=== PATIENT | female | born 1990 | race Caucasian/White ===

== ENCOUNTER 2018-10-28 20:05 | Inpatient (IN) ==
[~2018-10-28 20:05] MED LIST: PENICILLIN G POTASSIUM 2.5 MILLIONUNT in DEXTROSE 5 % IN WATER 100 ML IV SCH
[2018-10-28 20:53] LABS: Cocaine Ur Negative (NEGATIVE); Urine Barbiturate Negative (NEGATIVE); Urine Benzodiazepines Negative (NEGATIVE); Urine Opiates Negative (NEGATIVE); Urine PCP Negative (NEGATIVE); Urine THC Negative (NEGATIVE)
[2018-10-28] MEDS ORDERED: RINGER'S SOLUTION,LACTATED 1,000 ML IV ONE (21:55)
[2018-10-28] MEDS ORDERED: PENICILLIN G POTASSIUM 5 MILLIONUNT in DEXTROSE 5 % IN WATER 100 ML IV ONE ×2 (22:35)
[2018-10-28] MEDS ORDERED: OXYTOCIN/DEXTROSE 5%-WATER 30 UNITS/500 ML BAG IV ONE (22:50)
[2018-10-28] MEDS ORDERED: DEXTROSE 5%-LACTATED RINGERS 1,000 ML IV PRN (22:54)
[2018-10-28] MEDS ORDERED: LIDOCAINE HCL 50 ML VIAL PERI PRN (22:54)
[2018-10-28] MEDS ORDERED: RINGER'S SOLUTION,LACTATED 1,000 ML IV PRN ×2 (22:54)
--- NOTE | 2018-10-29 00:18 | HP ---
Chief Complaint - Chief Complaint Date of Service: 10/29/18 Time of Service: 00:16 Chief Complaint: Labor History of Present Illness: The patient presents with regular ctx. She denies vb or lof. Fetus is active. Medical History (Updated 09/07/18 @ 08:20 by Liang Nick DO) 6, currently Spontaneous Anxiety and depression Anemia affecting Surgical History: Surgical History (Updated 09/07/18 @ 08:20 by Liang Nick DO) Hx of tympanostomy tubes History of wisdom tooth extraction Family History: Family History (Updated 04/22/18 @ 09:39 by Evelyn Antonio CMA) Grandfather Diabetes Grandmother Diabetes Kidney failure Daughter , 5 months old RSV (respiratory syncytial virus infection) 5 months Mother Hypertension Father Alive and well Social History: Preferred Language Cymro Smoking Status Current every day smoker (Last Updated 10/23/18 @ 09:49 by Megha Chamberlain MD) No Social History Section defined Review Of Systems (GEN) - Review of Systems Generalized/Overall Review: Present: No Symptoms Reported Misc: All systems neg except as marked Immunizations: IMMUNIZATION HX Immunizations Up to Date Yes History of Influenza Vaccine Yes Hx Pneumococcal Vaccination No Allergies/Adverse Reactions: Allergies Allergy/AdvReac Type Severity Reaction Status Date / Time No Known Allergies Allergy Verified 10/28/18 20:25 Home Medications: HOME MEDICATIONS Vits96/Iron Fum/Folic [ S] 1 tab PO DAILY 12/20/12 [Last Taken 10/28/18 09:00] Ferrous Sulfate [Iron] 325 mg PO DAILY 09/07/18 [Last Taken 10/28/18 09:00] Exam - Exam Vital Signs: Vital Signs - Last Taken Temp 36.5 C 10/28/18 20:42 Pulse 90 10/28/18 20:42 Resp 16 10/28/18 20:42 BP 128/91 H 10/28/18 20:42 Pulse Ox 97 10/28/18 20:42 Constitutional: Present: Alert, Oriented x3, Cooperative Respiratory: Present: lungs clear, normal breath sounds Cardiovascular/Chest: Present: regular rate, rhythm, no murmur Abdomen: Present: soft, nontender, nondistended Extremity: Present: non-tender, no calf tenderness Skin Exam: Present: normal color, warm/dry, no cyanosis Appearance: Present: appropriate appearance Eye contact: Present: cooperative Thoughts: Present: normal thought pattern Diagnostic Studies: Laboratory Results Negative (NEGATIVE) 10/28/18 20:40 Negative (NEGATIVE) 10/28/18 20:40 Ur Phencyclidine Scrn Negative (NEGATIVE) 10/28/18 20:40 Urine Amphetamine Negative (NEGATIVE) 10/28/18 20:40 U Benzodiazepines Scrn Negative (NEGATIVE) 10/28/18 20:40 Negative (NEGATIVE) 10/28/18 20:40 Negative (NEGATIVE) 10/28/18 20:40 Assessment/Plan - Narrative Narrative: 28 year old @ 36w 6d who presented in labor PCN for GBS prophylaxis
[2018-10-29] MEDS ORDERED: SENNOSIDES 8.6 MG TABLET PO PRN (00:23)
[2018-10-29] MEDS ORDERED: HYDROCORTISONE 30 APPL TUBE TP PRN (00:23)
[2018-10-29] MEDS ORDERED: GLYCERIN/WITCH HAZEL LEAF 40 APPL BOX TP PRN (00:23)
[2018-10-29] MEDS ORDERED: BISACODYL 10 MG SUPP.RECT RC PRN (00:23)
[2018-10-29] MEDS ORDERED: OXYTOCIN/DEXTROSE 5%-WATER 30 UNITS/500 ML BAG IV ONE (00:23)
[2018-10-29] MEDS ORDERED: diphenhydrAMINE HCL 25 MG CAPSULE PO PRN (00:23)
[2018-10-29] MEDS ORDERED: oxyCODONE HCL/ACETAMINOPHEN 1 TAB TABLET PO PRN ×2 (00:23)
[2018-10-29] MEDS ORDERED: BENZOCAINE/MENTHOL 81 SPRAY CAN TP PRN (00:23)
--- NOTE | 2018-10-29 00:23 | OR ---
Operative Report - Dictated Report Narrative: Date of delivery: 10/29/2018 Time of delivery: 00:03 Gender: female APGARS: 9 weight: 2749 grams Procedure: Description of the procedure: The patient is a 28 year old who presented to labor and delivery and subsequently made cervical change consistent with labor. PCN was started for GBS prophylaxis. AROM performed at 9 cm dilation. Fluid was cloudy. She progressed to complete dilation within minutes. She delivered a viable female infant in the HECTOR position. Cord clamping was delayed for 60 seconds. The cord was clamped and cut and the infant was placed on the maternal abdomen. The placenta was delivered by expression. Initially, only a small port ion of the placenta delivered. The rest of the placenta was in the vagina and delivered without difficulty. Manual uterine exploration was not necessary. There were no lacerations. EBL: 50 mL Complications: none Specimen: placenta
[2018-10-29] MEDS: ACETAMINOPHEN 325 MG TABLET PO PRN ×2 (03:07→20:40)
[2018-10-29] MEDS: IBUPROFEN 800 MG TABLET PO PRN (07:11)
[2018-10-29] MEDS: DOCUSATE SODIUM 100 MG CAPSULE PO SCH ×2 (09:57→20:39)
[2018-10-30] MEDS: IBUPROFEN 800 MG TABLET PO PRN (06:35)
[2018-10-30] MEDS: DOCUSATE SODIUM 100 MG CAPSULE PO SCH ×3 (06:35→20:43)
--- NOTE | 2018-10-30 08:56 | PN ---
Subjective - Date and Time Seen Date: 10/30/18 Time: 08:55 Subjective Narrative: Pt without complaints Objective Objective Narrative: See vital signs - Review of Systems Generalized/Overall Review: Reports: No Symptoms Reported Misc: All systems neg except as marked - Vitals Vitals: Last Vital Signs Temp 36.3 C 10/30/18 06:34 Pulse 84 10/30/18 06:34 Resp 18 10/30/18 06:34 BP 125/79 10/30/18 06:34 Pulse Ox 97 10/30/18 06:34 - Exam Constitutional: Present: Alert, Oriented x3, Cooperative, No distress Abdomen: Present: soft, nontender Extremity: Present: non-tender, no calf tenderness Skin Exam: Present: normal color, warm/dry, no cyanosis Appearance: Present: appropriate appearance Eye contact: Present: cooperative Thoughts: Present: normal thought pattern Assessment/Plan Plan Narrative: PPD 1 s/p Doing well Discharge tomorrow
[2018-10-30] MEDS: ACETAMINOPHEN 325 MG TABLET PO PRN (18:48)
[2018-10-31] MEDS: IBUPROFEN 800 MG TABLET PO PRN (02:26)
[2018-10-31 06:18] VITALS: BP 96/65
--- NOTE | 2018-10-31 07:48 | PN ---
Subjective - Date and Time Seen Date: 10/31/18 Time: 07:46 Subjective Narrative: Pt without complaints Objective Objective Narrative: See vital signs - Review of Systems Generalized/Overall Review: Reports: No Symptoms Reported Misc: All systems neg except as marked - Vitals Vitals: Last Vital Signs Temp 36.6 C 10/31/18 06:18 Pulse 83 10/31/18 06:18 Resp 16 10/31/18 06:18 BP 96/65 10/31/18 06:18 Pulse Ox 97 10/31/18 06:18 - Exam Constitutional: Present: Alert, Oriented x3, Cooperative Abdomen: Present: soft, nontender, nondistended Extremity: Present: non-tender, no calf tenderness Skin Exam: Present: normal color, warm/dry, no cyanosis Appearance: Present: appropriate appearance Eye contact: Present: cooperative Thoughts: Present: normal thought pattern Assessment/Plan Plan Narrative: PPD 2 s/p Doing well Discharge home
[2018-10-31] MEDS: DOCUSATE SODIUM 100 MG CAPSULE PO SCH (10:11)
== END 2018-10-31 12:30 | disposition home or self-care (01) | DRG 806 ==
LOC: OBCLINIC 20:05 → OB 22:27 → MS 10-30 16:12
PROVIDERS: ADMIT Obstetrics & Gynecology; ATTEND Obstetrics & Gynecology
CPT/HCPCS: 59025; 80307; 88307

== ENCOUNTER 2018-11-21 17:57 | Inpatient (IN) ==
[2018-11-21] MEDS ORDERED: CALCIUM GLUCONATE 4.65 MEQ/10 ML VIAL IV PRN (18:02)
[2018-11-21] MEDS ORDERED: ONDANSETRON HCL/PF 2 MG/ML VIAL IV PRN (18:02)
[2018-11-21] MEDS ORDERED: METOCLOPRAMIDE HCL 5 MG/ML VIAL IV PRN (18:02)
[2018-11-21] MEDS ORDERED: DIAZEPAM 5 MG/ML SYRG IV PRN (18:02)
[2018-11-21] MEDS ORDERED: hydrALAZINE HCL 20 MG/ML VIAL IV PRN (18:02)
[2018-11-21] MEDS: MAGNESIUM SULFATE IN WATER 50 ML, MAGNESIUM SULFATE IN WATER 50 ML IV ONE ×4 (18:19→18:35)
[2018-11-21] MEDS ORDERED: LABETALOL HCL 5 MG/ML VIAL IV PRN (18:20)
[2018-11-21] MEDS ORDERED: METOCLOPRAMIDE HCL 5 MG/ML VIAL IV ONE (18:30)
[2018-11-21] MEDS ORDERED: diphenhydrAMINE HCL 50 MG/ML VIAL IV ONE (18:30)
[2018-11-21] MEDS: MAGNESIUM SULFATE IN WATER 1,000 ML IV SCH (18:48)
--- NOTE | 2018-11-21 20:19 | PN ---
Progess Note - Interim Date: 11/21/18 Time: 20:15 Narrative: 11/21/18 20:15 Please refer to today's office note for History & Physical. I called the patient when her lab work was available. I instructed her to come in for 24 hours of magnesium for seizure prophylaxis due to recent eclampsia, h eadache, and proteinuria that has increased compared to when the patient had eclampsia. Other pre-eclampsia labs were normal. A 6 gram bolus of magnesium was given followed by 2 grams an hour. Baseline creatinine normal. IV antihypertensives were ordered for BP control if BPs are in the severe range. Monitor intake and output Once the magnesium is off will need to increase the patient's procardia to 90mg PO XL
[2018-11-21] MEDS ORDERED: RINGER'S SOLUTION,LACTATED 1,000 ML IV PRN (20:34)
--- NOTE | 2018-11-22 08:57 | PN ---
Subjective - Date and Time Seen Date: 11/22/18 Time: 08:53 Subjective Narrative: Patient without complaints. She does report a headache from crying as she misses her Objective Objective Narrative: See vital signs - Review of Systems Generalized/Overall Review: Reports: No Symptoms Reported Misc: All systems neg except as marked - Vitals Vitals: Last Vital Signs Temp 36.3 C 11/22/18 07:24 Pulse 74 11/22/18 08:00 Resp 16 11/22/18 08:00 BP 126/87 11/22/18 08:00 Pulse Ox 97 11/22/18 08:00 - Exam Constitutional: Present: Alert, Oriented x3, Cooperative, No distress Respiratory: Present: lungs clear, normal breath sounds Cardiovascular/Chest: Present: regular rate, rhythm, no murmur Abdomen: Present: soft, nontender, nondistended Extremity: Present: non-tender, no calf tenderness Skin Exam: Present: normal color, warm/dry, no cyanosis Appearance: Present: appropriate appearance Eye contact: Present: cooperative Thoughts: Present: normal thought pattern Cauti Physician Documentation - Urinary Catheter Management Urethral (Odell) Urethral Indwelling: No Date of Insertion: 11/21/18 Time of Insertion: 18:46 Assessment/Plan Plan Narrative: 28 year old admitted for pre-eclampsia after having had eclampsia Blood pressures are either normal or mild range. No severe range blood pressures Start procardia 90 mg PO XL at 2100 tonight once the magnesium is stopped. Magnesium for 24 hours Discussed reproductive plans given that this is the patient's second admission. Michelle would like to proceed with salpingectomy.
[2018-11-22] MEDS ORDERED: ACETAMINOPHEN 500 MG TABLET PO PRN (09:20)
[2018-11-22] MEDS: MAGNESIUM SULFATE IN WATER 1,000 ML IV SCH (14:18)
[2018-11-22] MEDS ORDERED: NIFEdipine 30 MG TAB.SR.24H PO SCH ×2 (19:00→21:00)
--- NOTE | 2018-11-23 03:20 | PN ---
Subjective - Date and Time Seen Date: 11/23/18 Time: 03:17 Subjective Narrative: Patient without complaints. She does report a headache from crying as she misses her Objective Objective Narrative: See vital signs - Review of Systems Generalized/Overall Review: Reports: No Symptoms Reported Misc: All systems neg except as marked - Vitals Vitals: Last Vital Signs Temp 36.7 C 11/23/18 02:00 Pulse 67 11/23/18 02:00 Resp 16 11/23/18 02:00 BP 99/64 11/23/18 02:00 Pulse Ox 96 11/23/18 02:00 - Abnormal Lab Findings Abnormal Lab Findings: Abnormal Lab Results 11/22/18 Range/Units 16:15 Magnesium 8.3 H (1.2-2.8) mg/dL - Exam Constitutional: Present: Alert, Oriented x3, Cooperative Cardiovascular/Chest: Present: regular rate, rhythm, no murmur Abdomen: Present: soft, nontender, nondistended Extremity: Present: non-tender, no calf tenderness Skin Exam: Present: normal color, warm/dry, no cyanosis Appearance: Present: appropriate appearance Eye contact: Present: cooperative Thoughts: Present: normal thought pattern Cauti Physician Documentation - Urinary Catheter Management Urethral (Odell) Urethral Indwelling: No Date of Insertion: 11/21/18 Time of Insertion: 18:46 Date of Removal: 11/22/18 Time of Removal: 20:42 Assessment/Plan Plan Narrative: The patient is s/p magnesium treatment for approximately 24 hours. The patient's headache has resolved. BP mostly normal with some mild range BPs The patient received procardia 90mg PO XL. She was instructed to repeat her procardia dose tonight at 1900 Patient has an appointment for a blood pressure check tomorrow
--- NOTE | 2018-11-23 03:27 | DS ---
Description of Stay: The patient was admitted for magnesium for seizure prophylaxis due to hypertension and proteinuria. She was on magnesium for approximately 24 hours. Magnesium had to be turned off due to magnesium toxicity. She was started on procardia 90mg PO XL. On discharge blood pressures were normal to mild range. Procedures Performed: none Results and Findings: Lab Pending Results 11/22/18 16:15: Magnesium 8.3 H Discharge Location: Home Disposition: Home self-care Condition: Good Discharge Activity: Activity as tolerated Discharge Diet: General/regular food Referrals: Megha Chamberlain MD [Primary Care Provider] - Complete Home Medications List: Complete Home Medication List: Vits96/Iron Fum/Folic [ S] 1 tab PO DAILY 12/20/12 Acetaminophen [Tylenol] 1,000 mg PO Q6H PRN 11/21/18 nifedipine ER 90 mg tablet,extended release 24 hr 90 mg PO DAILY 30 Days #30 tab 11/21/18
[2018-11-23 08:32] VITALS: BP 124/86
== END 2018-11-23 08:40 | disposition home or self-care (01) | DRG 776 ==
LOC: OB 17:57
PROVIDERS: ADMIT Obstetrics & Gynecology; ATTEND Obstetrics & Gynecology
CPT/HCPCS: 36415; 83735